=== PATIENT | male | born 2000 | race Caucasian/White ===

== ENCOUNTER 2021-03-07 01:40 | Emergency (ER) | payer BC ==
[2021-03-07 02:18] LABS: Absolute Lymphocytes (CBC) 4.1 K/uL (0.7-4.9); Basophils % 0.6 % (0-1.3); Hematocrit 48.6 % (39.6-49.0); Lymphocytes % 42.6 % (15.3-44.8); MPV 9.7 fL (7.6-11.3); RBC Red Blood Cell Count 5.35 M/uL (4.33-5.43)
[2021-03-07] MEDS ORDERED: NA CHLORIDE 0.9% 1,000 ML ONE (02:22)
[2021-03-07] MEDS ORDERED: LIDOCAINE 1% W/EPI 1:100,000 MDV 20 ML VIAL ONE (02:22)
[2021-03-07 02:23] LABS: Potassium 3.5 mmol/L (3.5-5.1)
[2021-03-07] MEDS ORDERED: TETANUS & DIPHTHERIA TOX,ADULT 0.5 ML VIAL ONE (02:23)
[2021-03-07] MEDS ORDERED: LIDOCAINE 1% MPF 30 ML VIAL ONE (03:03)
[2021-03-07] MEDS ORDERED: CEFAZOLIN SODIUM 1 GM/VIAL ONE (03:16)
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
[2021-03-07 04:08] VITALS: BP 150/74; TEMP 97; O2SAT 100
[2021-03-07] MEDS ORDERED: KETOROLAC 30 MG/ML INJ ONE (04:19)
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
== END 2021-03-07 04:00 | disposition home or self-care (01) ==
LOC: ER 01:40
PROC: 0JQ10ZZ Repair Face Subcutaneous Tissue and Fascia, Open Approach (ICD-10-PCS; principal; 2021-03-07)
DX: S01.81XA Laceration without foreign body of other part of head, initial encounter (principal); S02.40FA Zygomatic fracture, left side, initial encounter for closed fracture; V27.5XXA Motorcycle passenger injured in collision with fixed or stationary object in traffic accident, initial encounter; Z23 Encounter for immunization
CPT/HCPCS: 85025; 80048; 36415; 86900; 86850; 86901; 70450; 72125; 71260; 70486; 76377; 74177; 73130 ×2; 90714; 96375; 99285; 12013; Q9967; J7030; J0690

== ENCOUNTER 2021-03-14 10:47 | Emergency (ER) | payer BC ==
--- NOTE | 2021-03-14 11:54 | ER ---
Nurse's Notes [facility] Name: Gregory Hernandes Age: 20 yrs Sex: Male : 2000 Arrival Date: 03/14/2021 Time: 10:48 Bed 10 Private MD: Diagnosis: Encounter for removal of sutures Presentation: 03/14 11:20 Chief complaint: Patient states: need for suture removal from left eyebrow, reports aa5 sutures were placed 1 week ago. Coronavirus screen: At this time, the client does not indicate any symptoms associated with coronavirus-19. Ebola Screen: No symptoms or risks identified at this time. Initial Sepsis Screen: Does the patient meet any 2 criteria? No. Patient's initial sepsis screen is negative. Does the patient have a suspected source of infection? No. Patient's initial sepsis screen is negative. Risk Assessment: Do you want to hurt yourself or someone else? Patient reports no desire to harm self or others. Onset of symptoms was March 14, 2021. 11:20 Acuity: LISA 4 aa5 11:20 Method Of Arrival: Ambulatory aa5 Triage Assessment: 12:07 General: Appears in no apparent distress. Behavior is. jt3 Historical: - Allergies: 11:21 No Known Allergies; aa5 - PMHx: 11:21 None; aa5 - PSHx: 11:21 None; aa5 - Immunization history:: Adult Immunizations up to date. - Social history:: Smoking status: Patient denies any tobacco usage or history of. Screenin:41 Abuse screen: Denies threats or abuse. Denies injuries from another. Nutritional jt3 screening: No deficits noted. Tuberculosis screening: No symptoms or risk factors identified. Fall Risk None identified. Assessment: 11:41 Pain: Denies pain. EENT: Reports Pt. reports needing stiches removed above left eye. No jt3 bleeding noted. . Vital Signs: 11:20 Pulse 80; Resp 18 S; Temp 97.2(TE); Pulse Ox 96% on R/A; Weight 113.4 kg (R); Height 6 aa5 ft. 1 in. (185.42 cm) (R); 11:22 BP 119 / 67; aa5 11:20 Body Mass Index 32.98 (113.40 kg, 185.42 cm) aa5 ED Course: 10:48 Patient arrived in ED. am2 11:19 Arm band placed on. aa5 11:20 Triage completed. aa5 11:24 Oswaldo Urbano PA is PHCP. jr8 11:24 Vasiliy Anaya MD is Attending Physician. jr8 11:35 Jason Espinoza, RN is Primary Nurse. jt3 11:41 Patient has correct armband on for positive identification. Call light in reach. jt3 11:41 No provider procedures requiring assistance completed. jt3 12:07 Patient did not have IV access during this emergency room visit. jt3 Administered Medications: No medications were administered Outcome: 11:53 Discharge ordered by . jr8 12:07 Discharged to home ambulatory. jt3 12:07 Condition: good 12:07 Discharge instructions given to patient. 12:07 Patient left the ED. jt3 Signatures: Jewell Hodgson, RN RN aa5 Oswaldo Urbano PA PA jr8 Jesika Jacob am2 Jason Espinoza, RN RN jt3
--- NOTE | 2021-03-14 11:54 | EDPHYS ---
Physician Documentation [facility] Name: Gregory Hernandes Age: 20 yrs Sex: Male : 2000 Arrival Date: 03/14/2021 Time: 10:48 Bed 10 Private MD: ED Physician Vasiliy Anaya HPI: 03/14 13:28 This 20 yrs old Male presents to ER via Ambulatory with complaints of Suture jr8 Removal. 13:28 The patient has sutures on the face. Previous treatment: The patient was initially jr8 treated 7 day(s) ago. Sutures/canelo progress: The patient has no c/o's. The wound is well-healing with no redness, swelling, discharge, or dehiscence reported. The patient has not experienced similar symptoms in the past. The patient has not recently seen a physician. Historical: - Allergies: 11:21 No Known Allergies; aa5 - PMHx: 11:21 None; aa5 - PSHx: 11:21 None; aa5 - Immunization history:: Adult Immunizations up to date. - Social history:: Smoking status: Patient denies any tobacco usage or history of. ROS: 13:28 Constitutional: Negative for fever, chills, and weight loss, Skin: Negative for injury, jr8 rash, and discoloration. 13:28 All other systems are negative. Exam: 13:28 Constitutional: This is a well developed, well nourished patient who is awake, alert, jr8 and in no acute distress. 13:28 Cardiovascular: Regular rate and rhythm with a normal S1 and S2. No gallops, murmurs, or rubs. Normal PMI, no JVD. No pulse deficits. Respiratory: Lungs have equal breath sounds bilaterally, clear to auscultation and percussion. No rales, rhonchi or wheezes noted. No increased work of breathing, no retractions or nasal flaring. MS/ Extremity: Pulses equal, no cyanosis. Neurovascular intact. Full, normal range of motion. Neuro: Awake and alert, GCS 15, oriented to person, place, time, and situation. Cranial nerves II-XII grossly intact. Motor strength 5/5 in all extremities. Sensory grossly intact. 13:28 Eyes: Periorbital structures: appear normal, Pupils: equal, round, and reactive to light and accomodation, Extraocular movements: intact throughout, Conjunctiva: subconjunctival hemorrhage(s), seen in the left eye, at 3 o'clock, Corneas: are normal, Sclera: no appreciated abnormality, Anterior chamber: normal, Lids and lashes: appear normal. 13:28 Skin: Wound recheck: Suture laceration closure: the wound is healing well, the edges are well approximated, no evidence of dehiscence, no drainage, no erythema, no swelling, over left eyebrow. Vital Signs: 11:20 Pulse 80; Resp 18 S; Temp 97.2(TE); Pulse Ox 96% on R/A; Weight 113.4 kg (R); Height 6 aa5 ft. 1 in. (185.42 cm) (R); 11:22 BP 119 / 67; aa5 11:20 Body Mass Index 32.98 (113.40 kg, 185.42 cm) aa5 Procedures: 11:51 Suture/Staple removal: Removed 5 sutures, from face, site appears well healed, Patient jr8 tolerated well. MDM: 11:24 Patient medically screened. jr8 11:51 Data reviewed: vital signs, nurses notes, and as a result, I will discharge patient. jr8 Data interpreted: Pulse oximetry: on room air is 96 %. Interpretation: normal. Counseling: I had a detailed discussion with the patient and/or guardian regarding: the historical points, exam findings, and any diagnostic results supporting the discharge/admit diagnosis, the need for outpatient follow up, a family practitioner, to return to the emergency department if symptoms worsen or persist or if there are any questions or concerns that arise at home. Administered Medications: No medications were administered Disposition: 03/15 08:49 Co-signature as Attending Physician, Vasiliy Anaya MD I agree with the assessment and sp3 plan of care. Disposition Summary: 03/14/21 11:53 Discharge Ordered Location: Home [facility] Problem: new jr8 Symptoms: have improved jr8 Condition: Stable jr8 Diagnosis - Encounter for removal of sutures jr8 Followup: jr8 - With: Private Physician - When: 1 week - Reason: Recheck today's complaints, Continuance of care, Re-evaluation by your physician Discharge Instructions: - Discharge Summary Sheet jr8 - Suture Removal, Care After jr8 Forms: - Medication Reconciliation Form jr8 - Thank You Letter jr8 - Antibiotic Education jr8 - Work release form jr8 - Prescription Opioid Use jr8 Signatures: Jewell Hodgson, RN RN aa5 Oswaldo Urbano PA PA jr8 Vasiliy Anaya MD MD sp3
[2021-03-14 12:50] VITALS: TEMP 97.2; O2SAT 96
[2021-03-14 12:51] VITALS: BP 119/67
== END 2021-03-14 12:07 | disposition home or self-care (01) ==
LOC: ER 10:47
DX: Z48.02 Encounter for removal of sutures (principal)
CPT/HCPCS: 99281